=== PATIENT | male | born 1995 ===

== ENCOUNTER 2021-03-21 21:27 | Emergency (ER) | payer SELFPAY ==
--- NOTE | 2021-03-22 01:01 | CR ---
Indication: Pain after injury Technique: Three views Comparison: None Findings: Bones: Alignment is normal. No fractures or bone lesions. Joint spaces: Unremarkable. Soft tissues: Unremarkable. Dictated by Curly Farris MD @ 03/22/2021 1:01:09 AM (Electronically Signed)
[2021-03-22] MEDS ORDERED: Ketorolac 15 MG/ML SDV IM STA (01:03)
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
--- NOTE | 2021-03-22 01:05 | CR ---
INDICATION: Left 2nd finger pain. TECHNIQUE: X-ray left 2nd finger, 3 views. COMPARISON: None available. FINDINGS: The alignment is normal. Negative for acute fracture or dislocation. The overlying soft tissues are normal limits. No radiopaque foreign bodies seen. IMPRESSION: Negative for acute fracture or dislocation. Dictated by Lucia Santos MD @ 03/22/2021 1:04:47 AM (Electronically Signed)
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
== END 2021-03-22 01:56 | disposition home or self-care (01) ==
LOC: MW.ED 21:27
DX: M79.644 Pain in right finger(s) (principal); M25.561 Pain in right knee; M25.571 Pain in right ankle and joints of right foot; V43.52XA Car driver injured in collision with other type car in traffic accident, initial encounter
CPT/HCPCS: 73140; 73562; 73590; 73600; 96372; 99284; J1885